=== PATIENT | male | born 1940 | race Caucasian/White ===

== ENCOUNTER 2021-02-24 10:04 | Emergency (ER) | payer MEDICARE ==
[~2021-02-24] VITALS: Ht 175.3 cm; Wt 86.4 kg
[2021-02-24 10:07] VITALS: BP 123/81
[2021-02-24] MEDS ORDERED: IBUP-1984 PO (10:58)
[2021-02-24] MEDS ORDERED: ketorolac trometh inj. 60 MG/2 ML VIAL IM ONE (11:00)
== END 2021-02-24 11:11 | disposition home or self-care (01) ==
LOC: ER 10:04
DX: N20.0 Calculus of kidney (principal); Z79.899 Other long term (current) drug therapy
CPT/HCPCS: 96372; 99283; J1885